=== PATIENT | female | born 1950 ===

== ENCOUNTER 2020-04-11 05:14 | Inpatient (IN) | payer OTHER ==
[~2020-04-11] VITALS: Ht 167.6 cm; Wt 89.8 kg
[~2020-04-11 05:14] MED LIST: ATACAND16 MG PO; FORTAMET500 MG PO; ROSUVASTATIN CA10 MG PO; SYNTHROID75 MCG PO
[2020-04-11] MEDS ORDERED: TRIAMCINOLONE A15 G1 (15:54)
[2020-04-11] MEDS ORDERED: FINASTERIDE5 MG (15:54)
[2020-04-11] MEDS ORDERED: NAPROXEN SODIU550 MG (15:54)
[2020-04-13] MEDS ORDERED: PERCOCET 5-3251 EACH PO (15:16)
[2020-04-13] MEDS ORDERED: DUI500 PO (15:16)
[2020-04-13] MEDS ORDERED: ELIQUIS2.5 MG PO (15:16)
== END 2020-04-13 17:25 | DRG 470 ==
LOC: CIR.AMB 05:14 → SURH 14:17 → O/R 14:17 → SURH 16:42
PROVIDERS: ADMIT Orthopaedic Surgery; ATTEND Orthopaedic Surgery
PROC: 0SRD0J9 Replacement of Left Knee Joint with Synthetic Substitute, Cemented, Open Approach (ICD-10-PCS; principal; 2020-04-11 10:00)
DX: M17.12 Unilateral primary osteoarthritis, left knee (principal); D62 Acute posthemorrhagic anemia; E11.9 Type 2 diabetes mellitus without complications; I10 Essential (primary) hypertension; Z20.822 Contact with and (suspected) exposure to COVID-19; Z96.652 Presence of left artificial knee joint; Z79.4 Long term (current) use of insulin